=== PATIENT | male | born 1970 | race Caucasian/White ===

== ENCOUNTER 2023-10-25 10:35 | Inpatient (IN) | payer OTHER, MEDICAID ==
[~2023-10-25] VITALS: Ht 175.3 cm; Wt 62.5 kg
[~2023-10-25 10:35] MED LIST: CINA60TA PO; LABE200T33 PO; SIMV20TA20
[2023-10-25] MEDS ORDERED: MORPHINE SULFATE 10 MG/ML INJ 1ML SDV IV ONE ×2 (11:00→12:15)
[2023-10-25 11:15] VITALS: PULSE 14; RESP 26; O2SAT 100
[2023-10-25 11:49] LABS: Basophils # (auto) 0.1 10 ^3/uL (0-0.2); Basophils % (auto) 0.9 % (0.0-2.0); Eosinophils # (auto) 0.1 10 ^3/uL (0-0.8); Eosinophils % (auto) 0.9 % (0.0-7.0); Hematocrit 38.7 % (41.0-53.0); Hemoglobin 13.2 g/dL (13.5-17.5); Lymphocytes # (auto) 0.8 10 ^3/uL (0.4-5.4); Lymphocytes % (auto) 6.8 % (10.0-50.0); Mean Corpuscular Hgb Conc. 34.2 g/dL (32.0-36.0); Mean Corpuscular Volume 96.6 fL (80.0-100.0); Monocytes # (auto) 1.1 10 ^3/uL (0-1.3); Monocytes % (auto) 9.4 % (0.0-12.0); Neutrophils # (auto) 9.3 10 ^3/uL (1.6-8.6); Nucleated Red Blood Cells % 0.1 %; Red Cell Distribution Width 16.9 % (11.8-14.3); White Blood Cell 11.3 10^3/uL (4.4-10.8)
[2023-10-25 11:55] LABS: Anion Gap 16 (5-15); Carbon Dioxide 25 mmol/L (20-30); Chloride 96 mmol/L (98-107); Potassium 3.3 mmol/L (3.5-5.1); Sodium 137 mmol/L (136-145)
[2023-10-25 11:56] LABS: Calcium 10.5 mg/dL (8.5-10.1)
[2023-10-25 12:01] LABS: BUN/Creatinine Ratio 3.9 (10.0-20.0); Blood Urea Nitrogen 23 mg/dL (9-23); Glucose 78 mg/dL (74-106)
[2023-10-25] MEDS: ONDANSETRON HCL 4 MG/2 ML VIAL IV ONE (12:11)
[2023-10-25] MEDS: MORPHINE SULFATE 4 MG/ML SYR/VIAL IV ONE ×2 (13:07→14:10)
[2023-10-25] MEDS ORDERED: ACETAMINOPHEN 325 MG TAB PO PRN (15:15)
[2023-10-25] MEDS ORDERED: MORPHINE SULFATE INJ 2 MG/ml SYRG IV PRN (15:15)
[2023-10-25] MEDS: PANTOPRAZOLE 40 MG/10 ML VIAL INJ IV ONE (15:59)
[2023-10-25] MEDS: cefTRIAXone 1GM/50ML D5W 50 ML IV ONE (15:59)
[2023-10-25] MEDS ORDERED: LACTULOSE 20Gm/30ML SOLN PO PRN (16:00)
[2023-10-25] MEDS: LACTULOSE 20Gm/30ML SOLN PO ONE (16:00)
[2023-10-25] MEDS: AZITHROMYCIN 500MG/ 250ML 250 ML IV ONE (16:57)
[2023-10-25] MEDS: HYDROcodone-ACET 5/325MG TAB PO PRN (17:35)
[2023-10-26 04:45] VITALS: BP 103/72; PULSE 65; RESP 18; TEMP 98.5; O2SAT 97
[2023-10-26 09:00] VITALS: BP 106/72; PULSE 75; RESP 16; TEMP 98.1; O2SAT 99
[2023-10-26] MEDS: PANTOPRAZOLE 40 MG/10 ML VIAL INJ IV SCH (09:23)
[2023-10-26] MEDS: cefTRIAXone 1GM/50ML D5W 50 ML IV SCH (09:23)
[2023-10-26 09:38] LABS: Alanine Aminotransferase 24 U/L (7-40); Albumin 3.1 g/dL (3.2-4.8); Alkaline Phosphatase 317 U/L (46-116); Anion Gap 13 (5-15); Aspartate Aminotransferase 138 U/L (13-40); BUN/Creatinine Ratio 3.5 (10.0-20.0); Blood Urea Nitrogen 26 mg/dL (9-23); Calcium 10.8 mg/dL (8.5-10.1); Carbon Dioxide 27 mmol/L (20-30); Chloride 93 mmol/L (98-107); Glucose 65 mg/dL (74-106); Potassium 3.6 mmol/L (3.5-5.1); Sodium 133 mmol/L (136-145)
[2023-10-26 09:39] LABS: Bilirubin, Total 1.9 mg/dL (0.2-1.0); Total Protein 7.8 g/dL (5.7-8.2)
[2023-10-26 09:52] LABS: Basophils # (auto) 0.1 10 ^3/uL (0-0.2); Basophils % (auto) 0.9 % (0.0-2.0); Eosinophils # (auto) 0.3 10 ^3/uL (0-0.8); Eosinophils % (auto) 3.5 % (0.0-7.0); Hematocrit 36.8 % (41.0-53.0); Hemoglobin 12.3 g/dL (13.5-17.5); Lymphocytes # (auto) 1.4 10 ^3/uL (0.4-5.4); Lymphocytes % (auto) 15.9 % (10.0-50.0); Mean Corpuscular Hemoglobin 32.9 pg (28.0-32.0); Mean Corpuscular Hgb Conc. 33.4 g/dL (32.0-36.0); Mean Corpuscular Volume 98.4 fL (80.0-100.0); Monocytes % (auto) 11.6 % (0.0-12.0); Neutrophils % (auto) 68.1 % (37.0-80.0); Nucleated Red Blood Cells % 0.1 %; Red Blood Cells 3.74 10^6/uL (4.5-5.90); Red Cell Distribution Width 17.4 % (11.8-14.3); White Blood Cell 8.8 10^3/uL (4.4-10.8)
[2023-10-26] MEDS: AZITHROMYCIN 500MG/ 250ML 250 ML IV SCH (10:02)
[2023-10-26] MEDS ORDERED: MORP-109 PO (10:38)
[2023-10-26] MEDS ORDERED: HYDR-4902 PO ×2 (10:38→15:43)
[2023-10-26] MEDS: ONDANSETRON HCL 4 MG/2 ML VIAL IV PRN (10:59)
[2023-10-26 13:00] VITALS: BP 117/75; PULSE 82; RESP 17; TEMP 97.9; O2SAT 98
[2023-10-26 17:00] VITALS: BP 116/86; PULSE 93; RESP 20; TEMP 97.9; O2SAT 97
== END 2023-10-26 19:57 | disposition home or self-care (01) | DRG 435 ==
LOC: EDBD 10:35 → ER 10:35 → OVERFLOW 15:12 → CENTRAL 10-26 04:35
PROVIDERS: ADMIT Nurse Practitioner Family; ATTEND Internal Medicine Geriatric Medicine
DX: C78.7 Secondary malignant neoplasm of liver and intrahepatic bile duct (principal); N18.6 End stage renal disease; I12.0 Hypertensive chronic kidney disease with stage 5 chronic kidney disease or end stage renal disease; C78.00 Secondary malignant neoplasm of unspecified lung; C25.9 Malignant neoplasm of pancreas, unspecified; Z94.0 Kidney transplant status; Q61.3 Polycystic kidney, unspecified; E87.20 Acidosis, unspecified; N25.81 Secondary hyperparathyroidism of renal origin; D63.1 Anemia in chronic kidney disease; Z99.2 Dependence on renal dialysis; Z87.891 Personal history of nicotine dependence; Z80.0 Family history of malignant neoplasm of digestive organs; Z80.3 Family history of malignant neoplasm of breast; Z85.528 Personal history of other malignant neoplasm of kidney
CPT/HCPCS: 36415; 71045; 71250; 74176; 80048; 80053; 83690; 84484; 85025; 87081; 93005; 96374; 96375; 96376; C9113; G0378; J2405

== ENCOUNTER 2023-11-03 15:42 | Inpatient (IN) | payer OTHER, MEDICAID ==
[~2023-11-03] VITALS: Ht 175.3 cm; Wt 64.0 kg
[~2023-11-03 15:42] MED LIST changes: +HYDR-4902 PO
[2023-11-03] MEDS ORDERED: NOREPINEPHRINE 8 MG/250ML KIT 250 ML IV SCH (16:30)
[2023-11-03] MEDS: SODIUM CHLORIDE 0.9% 1,000 ML IV ONE ×2 (16:34)
[2023-11-03] MEDS: cefTRIAXone 1GM/50ML D5W 50 ML IV ONE (16:34)
[2023-11-03] MEDS: metroNIDAZOLE 500MG/100ML 100 ML IV ONE (16:34)
[2023-11-03 17:07] LABS: Basophils # (auto) 0.1 10 ^3/uL (0-0.2); Basophils % (auto) 1.3 % (0.0-2.0); Eosinophils # (auto) 0.2 10 ^3/uL (0-0.8); Eosinophils % (auto) 2.2 % (0.0-7.0); Hematocrit 34.1 % (41.0-53.0); Hemoglobin 11.5 g/dL (13.5-17.5); Lymphocytes % (auto) 11.8 % (10.0-50.0); Mean Corpuscular Hemoglobin 32.9 pg (28.0-32.0); Mean Corpuscular Hgb Conc. 33.6 g/dL (32.0-36.0); Monocytes # (auto) 0.9 10 ^3/uL (0-1.3); Monocytes % (auto) 9.8 % (0.0-12.0); Neutrophils # (auto) 6.6 10 ^3/uL (1.6-8.6); Neutrophils % (auto) 74.9 % (37.0-80.0); Red Blood Cells 3.48 10^6/uL (4.5-5.90); Red Cell Distribution Width 17.5 % (11.8-14.3); White Blood Cell 8.8 10^3/uL (4.4-10.8)
[2023-11-03 17:31] LABS: Alanine Aminotransferase 30 U/L (7-40); Albumin 2.7 g/dL (3.2-4.8); Alkaline Phosphatase 309 U/L (46-116); Anion Gap 11 (5-15); Aspartate Aminotransferase 178 U/L (13-40); Blood Urea Nitrogen 31 mg/dL (9-23); Calcium 10.4 mg/dL (8.7-10.4); Carbon Dioxide 31 mmol/L (20-30); Chloride 96 mmol/L (98-107); Glucose 95 mg/dL (74-106); Potassium 3.5 mmol/L (3.5-5.1); Sodium 138 mmol/L (136-145); Total Protein 6.9 g/dL (5.7-8.2)
[2023-11-03] MEDS: ONDANSETRON HCL 4 MG/2 ML VIAL IV ONE ×2 (18:11)
[2023-11-03] MEDS: HYDROcodone-ACET 5/325MG TAB PO ONE (18:12)
[2023-11-03] MEDS: PANTOPRAZOLE 40 MG/10 ML VIAL INJ IV ONE (18:15)
[2023-11-03 18:17] LABS: Lactic Acid w/Reflex 2.7 mmol/L (0.4-2.0)
[2023-11-03 18:45] LABS: INR 1.69 (0.9-1.15); Partial Thromboplastin Time 28.8 SEC (24.5-34.5); Prothrombin Time 17.2 sec (9.3-11.8)
[2023-11-03 19:11] VITALS: PULSE 89; RESP 20; O2SAT 96
[2023-11-03] MEDS ORDERED: NITROGLYCERIN 0.4 MG SL TAB SL PRN (22:15)
[2023-11-03] MEDS ORDERED: ACETAMINOPHEN 325 MG TAB PO PRN (22:15)
[2023-11-03] MEDS ORDERED: MORPHINE SULFATE INJ 2 MG/ml SYRG IV PRN (22:15)
[2023-11-04] VITALS (8 sets, daily range): BP systolic 99–151; BP diastolic 43–78; PULSE 85–101; RESP 15–18; TEMP 97.5–98.4; O2SAT 96–100
[2023-11-04] MEDS ORDERED: OMEP-448 (03:29)
[2023-11-04] MEDS ORDERED: B-CO-5 PO (03:29)
[2023-11-04] MEDS ORDERED: LABE100T7 PO (03:29)
[2023-11-04] MEDS ORDERED: TRAM50TA2 PO (03:29)
[2023-11-04] MEDS ORDERED: PROC10TA6 PO (03:29)
[2023-11-04] MEDS ORDERED: FERR1TAB17 PO (03:29)
[2023-11-04] MEDS ORDERED: HYDR-4072 PO (03:29)
[2023-11-04] MEDS ORDERED: HYDR1TAB97 PO (03:29)
[2023-11-04] MEDS ORDERED: ZOFR4T (03:29)
[2023-11-04 07:13] LABS: Basophils # (auto) 0.1 10 ^3/uL (0-0.2); Basophils % (auto) 1.3 % (0.0-2.0); Eosinophils # (auto) 0.4 10 ^3/uL (0-0.8); Eosinophils % (auto) 4.2 % (0.0-7.0); Hematocrit 33.8 % (41.0-53.0); Hemoglobin 11.2 g/dL (13.5-17.5); Lymphocytes # (auto) 1.4 10 ^3/uL (0.4-5.4); Lymphocytes % (auto) 16.3 % (10.0-50.0); Mean Corpuscular Hemoglobin 33.5 pg (28.0-32.0); Mean Corpuscular Hgb Conc. 33.2 g/dL (32.0-36.0); Monocytes % (auto) 11.4 % (0.0-12.0); Neutrophils # (auto) 5.7 10 ^3/uL (1.6-8.6); Neutrophils % (auto) 66.8 % (37.0-80.0); Nucleated Red Blood Cells % 0.2 %; Red Blood Cells 3.35 10^6/uL (4.5-5.90); Red Cell Distribution Width 18.1 % (11.8-14.3); White Blood Cell 8.6 10^3/uL (4.4-10.8)
[2023-11-04 07:15] LABS: Chloride 99 mmol/L (98-107); Potassium 3.9 mmol/L (3.5-5.1); Sodium 137 mmol/L (136-145)
[2023-11-04 07:16] LABS: Anion Gap 11 (5-15); Carbon Dioxide 27 mmol/L (20-30)
[2023-11-04 07:17] LABS: Calcium 10.8 mg/dL (8.5-10.1)
[2023-11-04 07:22] LABS: BUN/Creatinine Ratio 3.5 (10.0-20.0); Blood Urea Nitrogen 24 mg/dL (9-23)
[2023-11-04 07:38] LABS: Glucose 48 mg/dL (74-106)
[2023-11-04] MEDS: B-COMPLEX W/ C & FOLIC ACID(NEPHROVITE TAB) PO SCH (09:43)
[2023-11-04] MEDS: APIXABAN 5 MG TAB PO SCH (09:43)
[2023-11-04] MEDS: HYDROcodone-ACET 5/325MG TAB PO PRN (09:51)
[2023-11-04] MEDS: ONDANSETRON HCL 4 MG/2 ML VIAL IV PRN (16:40)
[2023-11-05] VITALS (9 sets, daily range): BP systolic 106–151; BP diastolic 48–102; PULSE 68–93; RESP 14–18; TEMP 97.5–98.3; O2SAT 94–100
[2023-11-05 05:28] LABS: Basophils # (auto) 0.2 10 ^3/uL (0-0.2); Basophils % (auto) 2.1 % (0.0-2.0); Eosinophils # (auto) 0.5 10 ^3/uL (0-0.8); Eosinophils % (auto) 5.8 % (0.0-7.0); Hematocrit 34.4 % (41.0-53.0); Hemoglobin 11.5 g/dL (13.5-17.5); Lymphocytes # (auto) 1.2 10 ^3/uL (0.4-5.4); Lymphocytes % (auto) 15.6 % (10.0-50.0); Mean Corpuscular Hemoglobin 33.2 pg (28.0-32.0); Mean Corpuscular Hgb Conc. 33.5 g/dL (32.0-36.0); Monocytes # (auto) 0.7 10 ^3/uL (0-1.3); Monocytes % (auto) 9.3 % (0.0-12.0); Neutrophils # (auto) 5.3 10 ^3/uL (1.6-8.6); Neutrophils % (auto) 67.2 % (37.0-80.0); Red Blood Cells 3.47 10^6/uL (4.5-5.90); Red Cell Distribution Width 17.6 % (11.8-14.3)
[2023-11-05 05:46] LABS: Anion Gap 13 (5-15); Carbon Dioxide 28 mmol/L (20-30); Chloride 95 mmol/L (98-107); Potassium 3.7 mmol/L (3.5-5.1); Sodium 136 mmol/L (136-145)
[2023-11-05 05:47] LABS: Calcium 11.4 mg/dL (8.7-10.4)
[2023-11-05 05:52] LABS: BUN/Creatinine Ratio 4.4 (10.0-20.0); Glucose 57 mg/dL (74-106)
[2023-11-05 05:55] LABS: Blood Urea Nitrogen 36 mg/dL (9-23)
[2023-11-05] MEDS: SODIUM CHL 0.9% 1000 ML BAG XX ONE (07:00)
[2023-11-05] MEDS: HYDROcodone-ACET 10/325MG TAB PO PRN (10:07)
[2023-11-05] MEDS ORDERED: MORP-109 PO (13:50)
[2023-11-05] MEDS: MORPHINE SULF 15mg ER tab PO ONE (14:51)
[2023-11-05] MEDS: DOCUSATE SOD 100 MG CAP PO ONE (16:11)
[2023-11-05] MEDS: LACTULOSE 20Gm/30ML SOLN PO ONE (16:11)
[2023-11-05] MEDS: POLYETHYLENE GLYCOL 17 GM PWDR PO ONE (16:11)
[2023-11-05] MEDS: Ensure HIGH Protein Chocolate 8oz Bottle PO SCH (17:23)
[2023-11-05] MEDS: DOCUSATE SOD 100 MG CAP PO SCH (20:50)
[2023-11-05] MEDS: MELATONIN 5 MG TAB PO ONE (20:51)
[2023-11-05] MEDS: FAMOTIDINE (10MG/ML) 2ML VL IV ONE (20:52)
[2023-11-05] MEDS: MORPHINE SULF 15mg ER tab PO SCH (21:42)
[2023-11-06 01:00] VITALS: BP 106/50; PULSE 96; RESP 14; TEMP 98; O2SAT 97
[2023-11-06 05:00] VITALS: BP 100/54; PULSE 96; RESP 14; TEMP 98; O2SAT 98
[2023-11-06 05:42] LABS: Basophils # (auto) 0.1 10 ^3/uL (0-0.2); Basophils % (auto) 1.1 % (0.0-2.0); Eosinophils # (auto) 0.3 10 ^3/uL (0-0.8); Eosinophils % (auto) 3.3 % (0.0-7.0); Hematocrit 29.4 % (41.0-53.0); Hemoglobin 9.9 g/dL (13.5-17.5); Lymphocytes # (auto) 1.3 10 ^3/uL (0.4-5.4); Lymphocytes % (auto) 15.2 % (10.0-50.0); Mean Corpuscular Hemoglobin 33.5 pg (28.0-32.0); Mean Corpuscular Hgb Conc. 33.7 g/dL (32.0-36.0); Mean Corpuscular Volume 99.3 fL (80.0-100.0); Monocytes # (auto) 0.9 10 ^3/uL (0-1.3); Neutrophils # (auto) 6.1 10 ^3/uL (1.6-8.6); Neutrophils % (auto) 70.4 % (37.0-80.0); Red Blood Cells 2.96 10^6/uL (4.5-5.90); Red Cell Distribution Width 17.4 % (11.8-14.3); White Blood Cell 8.7 10^3/uL (4.4-10.8)
[2023-11-06 05:55] LABS: Chloride 100 mmol/L (98-107); Potassium 4.1 mmol/L (3.5-5.1); Sodium 136 mmol/L (136-145)
[2023-11-06 05:56] LABS: Anion Gap 10 (5-15); Calcium 10.8 mg/dL (8.5-10.1); Carbon Dioxide 26 mmol/L (20-30)
[2023-11-06 06:01] LABS: BUN/Creatinine Ratio 3.8 (10.0-20.0)
[2023-11-06 06:05] LABS: Blood Urea Nitrogen 26 mg/dL (9-23)
[2023-11-06 06:07] LABS: Glucose 42 mg/dL (74-106)
[2023-11-06 06:21] LABS: Magnesium 2.2 mg/dL (1.6-2.6)
[2023-11-06] MEDS: ACCU-CHEK COMFORT CURVE STRIP VI SCH (06:45)
[2023-11-06] MEDS ORDERED: DEXTROSE (50%) 50ML SYRG IV PRN (06:45)
[2023-11-06 08:00] VITALS: BP 104/62; PULSE 104; PULSE 98; RESP 20; TEMP 98.2; O2SAT 96
[2023-11-06] MEDS: POLYETHYLENE GLYCOL 17 GM PWDR PO SCH (10:19)
[2023-11-06 12:00] VITALS: BP 108/44; PULSE 89; RESP 18; TEMP 98.1; O2SAT 97
[2023-11-06] MEDS: D5W/SOD CHLO 0.9% 1,000 ML IV SCH (12:52)
[2023-11-06 16:00] VITALS: BP 155/41; PULSE 90; RESP 18; TEMP 97.6; O2SAT 97
[2023-11-06 20:00] VITALS: PULSE 72; PULSE 77; RESP 18; TEMP 36.4; O2SAT 97
[2023-11-07 08:00] VITALS: BP 115/25; PULSE 92; RESP 18; TEMP 98.1; O2SAT 98
[2023-11-07 12:00] VITALS: BP 103/39; PULSE 91; RESP 20; TEMP 97.6; O2SAT 97
[2023-11-07 16:00] VITALS: BP 124/64; PULSE 93; RESP 18; TEMP 97.6; O2SAT 99
[2023-11-07] MEDS: Nepro With Carbsteady ButterPecan 8oz Carton PO SCH (18:00)
[2023-11-07 20:00] VITALS: BP 98/59; PULSE 89; PULSE 96; RESP 18; TEMP 98.4; O2SAT 99
[2023-11-07 21:00] VITALS: BP 98/59; PULSE 89; RESP 18; TEMP 98.4; O2SAT 99
[2023-11-07] MEDS: FAMOTIDINE (10MG/ML) 2ML VL IV SCH (21:29)
[2023-11-08 04:59] VITALS: BP 173/60; PULSE 94; RESP 20; TEMP 98.6; O2SAT 100
[2023-11-08] MEDS: SODIUM CHL 0.9% 1000 ML BAG XX ONE (07:00)
[2023-11-08 08:00] VITALS: PULSE 93; PULSE 97; RESP 17; O2SAT 99
[2023-11-08 08:40] VITALS: BP 133/59; PULSE 92; RESP 18; TEMP 97.7; O2SAT 94
[2023-11-08] MEDS: ALBUMIN 25% 100 ML IV ONE ×2 (09:05)
[2023-11-08 12:55] VITALS: BP 125/52; PULSE 88; RESP 18; TEMP 97.5; O2SAT 95
[2023-11-08 17:00] VITALS: BP 140/57; PULSE 83; RESP 20; TEMP 98.1; O2SAT 94
== END 2023-11-08 20:00 | disposition home or self-care (01) | DRG 435 ==
LOC: ER 15:42 → TELE 22:16 → TELE-WESTW 22:16
PROVIDERS: ADMIT Nurse Practitioner; ATTEND Internal Medicine Geriatric Medicine
PROC: 5A1D70Z Performance of Urinary Filtration, Intermittent, Less than 6 Hours Per Day (ICD-10-PCS; principal; 2023-11-05)
PROC: 5A1D70Z Performance of Urinary Filtration, Intermittent, Less than 6 Hours Per Day (ICD-10-PCS; 2023-11-08)
DX: C25.9 Malignant neoplasm of pancreas, unspecified (principal); E43 Unspecified severe protein-calorie malnutrition; N18.6 End stage renal disease; N17.9 Acute kidney failure, unspecified; I12.0 Hypertensive chronic kidney disease with stage 5 chronic kidney disease or end stage renal disease; C78.7 Secondary malignant neoplasm of liver and intrahepatic bile duct; C78.02 Secondary malignant neoplasm of left lung; C78.01 Secondary malignant neoplasm of right lung; Z94.0 Kidney transplant status; E87.20 Acidosis, unspecified; E86.0 Dehydration; K52.9 Noninfective gastroenteritis and colitis, unspecified; I35.0 Nonrheumatic aortic (valve) stenosis; D63.8 Anemia in other chronic diseases classified elsewhere; I95.3 Hypotension of hemodialysis; E16.2 Hypoglycemia, unspecified; Z68.20 Body mass index [BMI] 20.0-20.9, adult; Z99.2 Dependence on renal dialysis; Z80.3 Family history of malignant neoplasm of breast; Z80.0 Family history of malignant neoplasm of digestive organs
CPT/HCPCS: 36415; 71045; 80048; 80053; 82962; 83605; 83735; 84484; 85025; 85610; 85730; 87040; 87081; 87340; 90935; 93005; 93306; C9113; G0378; J1642; J2405; J3490; J7042; P9047

== ENCOUNTER 2023-11-14 19:46 | Inpatient (IN) | payer OTHER, MEDICAID ==
[~2023-11-14] VITALS: Ht 167.6 cm; Wt 55.0 kg
[~2023-11-14 19:46] MED LIST changes: +B-CO-5 PO; +FERR1TAB17 PO; +HYDR-4072 PO; -HYDR-4902 PO; +HYDR1TAB97 PO; +LABE100T7 PO; -LABE200T33 PO; +MORP-109 PO; +OMEP-448; +PROC10TA6 PO; -SIMV20TA20; +TRAM50TA2 PO; +ZOFR4T
[2023-11-14] MEDS: SODIUM CHLORIDE 0.9% 1,000 ML IV ONE (20:52)
[2023-11-14] MEDS: DEXTROSE (50%) 50ML SYRG IV ONE (21:37)
[2023-11-15] MEDS: HYDROmorphone HCL 2 MG/ML VL/or syr IM ONE (01:09)
[2023-11-15 02:55] LABS: Basophils # (auto) 0.1 10 ^3/uL (0-0.2); Eosinophils # (auto) 0.4 10 ^3/uL (0-0.8); Hemoglobin 9.2 g/dL (13.5-17.5); Lymphocytes # (auto) 0.9 10 ^3/uL (0.4-5.4); Monocytes # (auto) 0.8 10 ^3/uL (0-1.3)
[2023-11-15 02:56] LABS: Basophils % (auto) 1.5 % (0.0-2.0); Eosinophils % (auto) 4.9 % (0.0-7.0); Hematocrit 28.8 % (41.0-53.0); Mean Corpuscular Hemoglobin 32.9 pg (28.0-32.0); Mean Corpuscular Hgb Conc. 32.1 g/dL (32.0-36.0); Mean Corpuscular Volume 102.7 fL (80.0-100.0); Monocytes % (auto) 9.9 % (0.0-12.0); Neutrophils % (auto) 72.7 % (37.0-80.0); Red Cell Distribution Width 17.6 % (11.8-14.3); White Blood Cell 8.3 10^3/uL (4.4-10.8)
[2023-11-15] MEDS ORDERED: DEXTROSE 10% 250 ML Bag IV ONE (03:00)
[2023-11-15 03:09] LABS: Alanine Aminotransferase 41 U/L (7-40); Albumin 2.1 g/dL (3.2-4.8); Alkaline Phosphatase 336 U/L (46-116); Anion Gap 10 (5-15); Aspartate Aminotransferase 246 U/L (13-40); BUN/Creatinine Ratio 4.7 (10.0-20.0); Blood Urea Nitrogen 40 mg/dL (9-23); Calcium 11.4 mg/dL (8.7-10.4); Carbon Dioxide 24 mmol/L (20-30); Chloride 102 mmol/L (98-107); Glucose 66 mg/dL (74-106); Lipase 128 U/L (12-53); Potassium 4.6 mmol/L (3.5-5.1); Sodium 136 mmol/L (136-145)
[2023-11-15 03:10] LABS: Bilirubin, Total 4.8 mg/dL (0.2-1.0); Total Protein 5.7 g/dL (5.7-8.2)
[2023-11-15] MEDS: DEXTROSE (50%) 50ML SYRG IV ONE (03:18)
[2023-11-15] MEDS: DEXTROSE 10% 1,000 ML IV ONE (03:31)
[2023-11-15] MEDS ORDERED: TEMAZEPAM 15 MG CAP PO PRN (05:30)
[2023-11-15] MEDS ORDERED: ACETAMINOPHEN 325 MG TAB PO PRN (05:30)
[2023-11-15] MEDS ORDERED: HYDROcodone-ACET 5/325MG TAB PO PRN (05:30)
[2023-11-15] MEDS ORDERED: ONDANSETRON HCL 4 MG/2 ML VIAL IV PRN (05:30)
[2023-11-15] MEDS: ALBUMIN 5% 250 ML IV ONE ×2 (06:54→08:28)
[2023-11-15 07:50] VITALS: PULSE 85; RESP 11; O2SAT 100
[2023-11-15 10:01] LABS: Hepatitis A Ab IgM Negative
[2023-11-15 10:02] LABS: Hepatitis B Core IgM Negative
[2023-11-15 10:03] LABS: Hepatitis C Antibody Negative (Negative)
[2023-11-15 10:08] LABS: Hepatitis B Surface Antigen Negative (Negative)
[2023-11-15] MEDS: MORPHINE SULF 15mg ER tab PO SCH (13:20)
[2023-11-15] MEDS: APIXABAN 5 MG TAB PO SCH (13:36)
[2023-11-15] MEDS: SODIUM CHL 0.9% 1000 ML BAG XX ONE (13:37)
[2023-11-15] MEDS: ALBUMIN 25% 100 ML IV PRN (15:41)
[2023-11-15 16:00] VITALS: TEMP 98
[2023-11-15 18:00] VITALS: BP 93/53; PULSE 94; RESP 23; O2SAT 99
== END 2023-11-15 07:08 | disposition hospice, home (50) | DRG 435 ==
LOC: ER 19:46 → EDBD 19:46 → OVERFLOW 11-15 05:28
PROVIDERS: ADMIT Nurse Practitioner; ATTEND Internal Medicine Geriatric Medicine
PROC: 5A1D70Z Performance of Urinary Filtration, Intermittent, Less than 6 Hours Per Day (ICD-10-PCS; principal; 2023-11-15)
DX: C25.9 Malignant neoplasm of pancreas, unspecified (principal); N18.6 End stage renal disease; C78.00 Secondary malignant neoplasm of unspecified lung; C78.7 Secondary malignant neoplasm of liver and intrahepatic bile duct; Z68.1 Body mass index [BMI] 19.9 or less, adult; R62.7 Adult failure to thrive; D63.1 Anemia in chronic kidney disease; Z99.2 Dependence on renal dialysis; Z80.3 Family history of malignant neoplasm of breast; Z80.0 Family history of malignant neoplasm of digestive organs; Z51.5 Encounter for palliative care
CPT/HCPCS: 36415; 80053; 80074; 82962; 83690; 85025; 90935; 93005; G0378; J1642; P9047